=== PATIENT | male | born 1985 | race African-American/Black ===

== ENCOUNTER 2021-02-01 09:00 | Emergency (ER) | payer MEDICAID ==
[~2021-02-01] VITALS: Ht 182.9 cm; Wt 77.0 kg
[2021-02-01 09:03] VITALS: BP 107/60
[2021-02-01] MEDS ORDERED: TETANUS, DIPHTHERIA, PERTUSSIS VAC/PF 0.5ML (>10YR OLD) IM ONE (09:30)
[2021-02-01] MEDS ORDERED: LIDOCAINE HCL/EPINEPHRINE 1%-EPI 1:100,000 20 ML VIAL INFIL ONE (10:00)
== END 2021-02-01 10:50 | disposition home or self-care (01) ==
LOC: ER 09:00
DX: S01.81XA Laceration without foreign body of other part of head, initial encounter (principal); V49.3XXA Car occupant (driver) (passenger) injured in unspecified nontraffic accident, initial encounter; Y93.89 Activity, other specified; Y92.9 Unspecified place or not applicable
CPT/HCPCS: 12011; 90471; 90715; 99283; J3490; Z7610